=== PATIENT | male | born 1980 | race Caucasian/White ===

== ENCOUNTER 2017-11-14 01:19 | Emergency (ER) | payer OTHER ==
[~2017-11-14] VITALS: Ht 177.8 cm; Wt 75.5 kg
[~2017-11-14 01:19] MED LIST: BACTRIM,SEPT1 TABLET PO; BENADRYL50 MG PO; CLINDAMYCIN HC300 MG PO; NAPROSYN500 MG PO; PERCOCET 5/31 TABLET PO; ZOFRAN4 MG PO
[2017-11-14] MEDS ORDERED: KEFLEX500 MG PO (02:13)
[2017-11-14] MEDS ORDERED: BACTRIM,SEPT1 TABLET PO (02:13)
[2017-11-14 02:16] VITALS: BP 143/98
== END 2017-11-14 02:23 | disposition home or self-care (01) ==
LOC: EME 01:19
DX: S60.562A Insect bite (nonvenomous) of left hand, initial encounter (principal); L02.512 Cutaneous abscess of left hand; W57.XXXA Bitten or stung by nonvenomous insect and other nonvenomous arthropods, initial encounter; F17.200 Nicotine dependence, unspecified, uncomplicated; Z88.0 Allergy status to penicillin
CPT/HCPCS: 87070; 87075; 87077; 87147; 87186; 87205; 99281; 99284; J0696

== ENCOUNTER 2018-04-27 22:23 | Emergency (ER) | payer OTHER ==
[~2018-04-27] VITALS: Ht 180.3 cm; Wt 78.7 kg
[~2018-04-27 22:23] MED LIST changes: +KEFLEX500 MG PO
[2018-04-27] MEDS ORDERED: BACTRIM,SEPT1 TABLET PO (23:51)
[2018-04-27] MEDS ORDERED: KEFLEX500 MG PO (23:51)
[2018-04-28 00:09] VITALS: BP 126/82
== END 2018-04-28 00:10 | disposition home or self-care (01) ==
LOC: EME 22:23
DX: L03.313 Cellulitis of chest wall (principal); J44.9 Chronic obstructive pulmonary disease, unspecified; F17.200 Nicotine dependence, unspecified, uncomplicated; Z86.14 Personal history of Methicillin resistant Staphylococcus aureus infection
CPT/HCPCS: 99281; 99284

== ENCOUNTER 2018-07-16 23:58 | Emergency (ER) | payer OTHER ==
[~2018-07-16] VITALS: Ht 180.3 cm; Wt 75.7 kg
[2018-07-17 03:09] VITALS: BP 135/89
== END 2018-07-17 03:09 | disposition home or self-care (01) ==
LOC: EME 23:58
PROC: 2W3JX1Z Immobilization of Right Finger using Splint (ICD-10-PCS; principal; 2018-07-16)
DX: S62.316A Displaced fracture of base of fifth metacarpal bone, right hand, initial encounter for closed fracture (principal); S63.501A Unspecified sprain of right wrist, initial encounter; W22.09XA Striking against other stationary object, initial encounter; Y92.000 Kitchen of unspecified non-institutional (private) residence as the place of occurrence of the external cause; Z88.0 Allergy status to penicillin; Z91.040 Latex allergy status; Z91.09 Other allergy status, other than to drugs and biological substances
CPT/HCPCS: 73110; 73130; 99281; 99284; J1885; J3010